=== PATIENT | male | born 1980 | race Caucasian/White ===

== ENCOUNTER 2023-03-03 00:27 | Emergency (ER) | payer OTHER ==
[2023-03-03] MEDS ORDERED: Ketorolac 60 MG/2 ML SDV IM ONE (01:51)
[2023-03-03] MEDS ORDERED: Acetaminophen/oxyCODONE 325-5 MG Tab PO ONE (01:51)
== END 2023-03-03 03:39 | disposition home or self-care (01) ==
LOC: JD.ED 00:27
DX: S82.51XA Displaced fracture of medial malleolus of right tibia, initial encounter for closed fracture (principal); X50.1XXA Overexertion from prolonged static or awkward postures, initial encounter; Y93.01 Activity, walking, marching and hiking; Y92.89 Other specified places as the place of occurrence of the external cause; Y99.0 Civilian activity done for income or pay
CPT/HCPCS: 29515; 73610; 96372; 99283; A9270; J1885